=== PATIENT | female | born 1970 | race Caucasian/White ===

== ENCOUNTER 2022-02-03 11:15 | Emergency (ER) | payer OTHER, SELFPAY ==
[2022-02-03 12:15] VITALS: BP 123/81; PULSE 70; RESP 18; TEMP 36.7; O2SAT 100
--- NOTE | 2022-02-03 13:15 | ED.GENADULT ---
HPI - General Adult General Chief complaint: Extremity Problem,Nontraumatic Stated complaint: finger nails discoloration Time Seen by Provider: 02/03/22 13:02 Source: patient Mode of arrival: ambulatory Limitations: no limitations History of Present Illness HPI narrative: Patient presents today complaining of redness and swelling to her right 4th finger since yesterday at 2:00 p.m.. Two days ago her hands got covered in Gorilla Glue. she subsequently covered her hands in Vaseline and put some gloves on for the Vaseline to soaking her hand so she could remove the glue. she noted some swelling and redness yesterday to her 4th finger with severe pain. Last night she noted some red streaking from this finger of her hand. The streaking is gone today, but the pain persists throughout the entire 4th finger. Denies fever. Related Data Allergies Allergy/AdvReac Type Severity Reaction Status Date / Time No Known Allergies Allergy Unverified 02/03/22 12:27 Review of Systems Review of Systems: CONSTITUTIONAL: Denies body aches, fever, chills, or sweats. EYES: Denies visual changes, redness, or discharge. ENT: Denies rhinorrhea, congestion, sore throat, or otalgia. CARDIOVASCULAR: Denies chest pain, palpitations, or edema. RESPIRATORY: Denies cough or dyspnea. GASTROINTESTINAL: Denies abdominal pain, nausea, vomiting, or diarrhea. GENITOURINARY: Denies dysuria or hematuria. SKIN: Denies rash, itching, or wounds. MUSCULOSKELETAL: Denies back pain, joint pain, or myalgia.+ Redness, swelling, and pain to the right 4th finger NEUROLOGIC: Denies headache, numbness, tingling, or weakness. PSYCH: Denies depression or anxiety. PMFSH Comments At time of signature, I have reviewed and agree with nursing past medical, surgical, social and family history unless otherwise noted. Please see nursing chart for further information. There is no relevant family history pertinent to the presenting complaint Exam Narrative: GENERAL: Well-appearing, well-nourished, and in no acute distress. HEAD: Normocephalic, atraumatic. EYES: EOMI. No redness or drainage. Conjunctivae normal. ENT: Mucous membranes pink and moist. NECK: Normal AROM. CHEST: No respiratory distress. EXTREMITIES: Normal range of motion. No edema. SKIN: Warm, dry, no rash. Capillary refill normal. Normal skin turgor. right 4th finger: Redness, ecchymosis, and swelling to the distal phalanx. Tender to palpation. The area around the nail is fluctuant, but no obvious purulent collection. no red streaking noted. NEURO: No focal deficits. Alert and oriented x3. Gait steady. PSYCH: Normal affect. No signs of depression or anxiety. Course Course Level of Care: Express Care Visit Vital Signs Vital signs: Vital Signs Temperature 98.1 F 02/03/22 12:15 Pulse Rate 70 02/03/22 12:15 Respiratory Rate 18 02/03/22 12:15 Blood Pressure 123/81 02/03/22 12:15 Pulse Oximetry 100 02/03/22 12:15 Temperature 98.1 F 02/03/22 12:15 Pulse Rate 70 02/03/22 12:15 Respiratory Rate 18 02/03/22 12:15 Blood Pressure 123/81 02/03/22 12:15 Pulse Oximetry 100 02/03/22 12:15 Reviewed. Pt has been instructed to follow up with her PCP regarding her elevated blood pressure today. Procedures Abscess I/D hand: Date of Incision: 02/03/22 Time of Incision: 13:19 Side (if applicable): right Local Anesthetic: none Abcess I&D Additional Comments: Incised right 4th finger with 18 gauge needle after cleansing with alcohol. Small amount of blood and clear fluid resulting. Patient tolerated procedure well dressed with Band-Aid Medical Decision Making Differential Diagnosis Differential Diagnosis: Paronychia, cellulitis, subungual abscess, lymphangitis Vital Signs Vital Signs: Vital Signs Temperature 98.1 F 02/03/22 12:15 Pulse Rate 70 02/03/22 12:15 Respiratory Rate 18 02/03/22 12:15 Blood Pressure 123/81
== END 2022-02-03 13:23 | disposition home or self-care (01) ==
PROVIDERS: Emergency Provider Nurse Practitioner; PCP Internal Medicine
DX: L03.011 Cellulitis of right finger (principal); Z86.16 Personal history of COVID-19
CPT/HCPCS: 10060; 99213; G0463

== ENCOUNTER 2023-07-23 09:00 | Emergency (ER) | payer OTHER, SELFPAY ==
[2023-07-23 09:26] VITALS: BP 125/80; PULSE 101; RESP 16; TEMP 36.6; O2SAT 99
--- NOTE | 2023-07-23 10:12 | ED.URI ---
HPI - URI/Sore Throat General Chief Complaint: Upper Respiratory Infection Stated Complaint: Cold symptoms Time Seen by Provider: 07/23/23 10:12 Source: patient, RN notes reviewed and old records reviewed Mode of arrival: ambulatory Limitations: no limitations History of Present Illness HPI Narrative: 53-year-old female presents to the [facility] with complaints of a sore throat, headache, body aches since Friday, 2 days. Denies fevers His taking Related Data Home Medications Medication Instructions Recorded Confirmed progesterone micronized 100 mg 100 mg PO QAM 07/23/23 07/23/23 capsule Allergies Allergy/AdvReac Type Severity Reaction Status Date / Time No Known Allergies Allergy Verified 07/23/23 09:56 Review of Systems Review of Systems: All systems reviewed & are unremarkable except as noted in HPI and below Constitutional: Constitutional: Reports as per HPI, Reports body ache(s) and Reports headache(s) Eyes: Eyes: Reports no additional eye complaints ENT: Reports as per HPI and Reports sore throat Cardiovascular: Cardiovascular: Reports no additional cardiovascular complaints, Denies chest pain and Denies dyspnea Respiratory: Respiratory: Reports no additional respiratory complaints, Denies chest congestion, Denies cough and Denies dyspnea Gastrointestinal: Gastrointestinal: Reports no additional gastrointestinal complaints, Denies abdominal pain, Denies nausea and Denies vomiting Musculoskeletal: Musculoskeletal: Reports no additional musculoskeletal complaints Integumentary/Breasts: Skin/Breast: Reports system reviewed and no additional complaints, except as docu Neurologic: Reports system reviewed and no additional complaints, except as documented Psychiatric: Psychiatric: Reports no additional psychiatric complaints Allergic/Immunologic: Allergic/Immunologic: Reports no additional allergic/immunologic complaints PMFSH Comments At the time of my signature, I reviewed and agree with the nursing past medical, surgical, social, and family history. There is no relevant family history pertinent to the patient complaint. Exam Const: General: cooperative, healthy appearing, comfortable, no acute distress, well developed, alert and well nourished Nutritional Appearance: well nourished Orientation/consciousness: patient oriented x3 Limitations: no limitations HENMT: Head: normal to inspection Ears: hearing grossly normal bilaterally, external ears normal, TM's normal bilaterally, EAC's normal, mastoids normal and no periauricular adenopathy Face/Nose/Sinus: Normal external nose present, Normal nares present, Normal nasal mucous membranes and turbinates present, normal facial exam, sinuses nontender and face symmetric Face and sinus: normal facial exam, sinuses nontender and face symmetric Mouth: Yes Normal oral and palatal mucosa present, Yes lip normal, Yes tongue normal and Yes moist mucous membranes Throat: posterior oropharynx normal, tonsils normal, uvula midline and postnasal drainage Eyes: General: appearance normal, both eyes and all related structures Alignment and Position: alignment normal Periorbital: periorbital findings normal Pupils: Equal, round and reactive pupils present EOM: EOMs intact bilaterally Neck: Neck: normal visual inspection, full ROM, no lymphadenopathy and no meningeal signs Chest: Chest palpation & inspection: normal inspection of the chest Resp: Effort & Inspection: normal respiratory effort and able to speak in complete sentences Auscultation: clear to auscultation bilaterally, no crackles, no rales, no rhonchi and no wheezes Cardio: Rate: regular rate Rhythm: regular rhythm Skin: General skin exam: normal color and no rashes or lesions noted Lesions: no lesions Rashes: no rashes Wounds: no wounds Neuro: General: patient oriented x3, gait normal, tone normal, moves all extremities and no meningeal signs Cranial nerves: Yes Equal, round and reactive pupils
== END 2023-07-23 10:25 | disposition home or self-care (01) ==
PROVIDERS: Emergency Provider Nurse Practitioner
DX: J06.9 Acute upper respiratory infection, unspecified (principal); K12.0 Recurrent oral aphthae; Z86.16 Personal history of COVID-19
CPT/HCPCS: 87081; 87880; 99213; G0463